=== PATIENT | male | born 2000 | race Caucasian/White ===

== ENCOUNTER 2019-06-13 16:02 | Emergency (ER) | payer BC ==
--- NOTE | 2019-06-13 16:39 | ER Document Report ---
ED Medical Screen (RME) - General Chief Complaint: Testicular Pain Stated Complaint: TESTICULAR PAIN Time Seen by Provider: 06/13/19 16:36 Mode of Arrival: Ambulatory Information source: Patient Notes: Patient presents complaining of right testicular pain for the past 3 days. Patient denies any fever nausea vomiting or urinary symptoms. Patient denies any change in appearance of the scrotum. Patient denies any trauma to the scrotum. I have greeted and performed a rapid initial assessment of this patient. A comprehensive ED assessment and evaluation of the patient, analysis of test r esults and completion of the medical decision making process will be conducted by additional ED providers. - Related Data Allergies/Adverse Reactions: No Known Allergies Allergy (Unverified 06/13/19 16:05) Past Medical History - Social History Chew tobacco use (# tins/day): No Frequency of alcohol use: None Drug Abuse: None Renal/ Medical History: Denies: Hx Peritoneal Dialysis Physical Exam - Vital signs Vitals: Temp Pulse Resp BP Pulse Ox 97.5 F 71 16 134/68 H 99 06/13/19 16:08 06/13/19 16:08 06/13/19 16:08 06/13/19 16:08 06/13/19 16:08 - General General appearance: Appears well, Alert In distress: None Course - Vital Signs Vital signs: Temp Pulse Resp BP Pulse Ox 97.5 F 71 16 134/68 H 99 06/13/19 16:08 06/13/19 16:08 06/13/19 16:08 06/13/19 16:08 06/13/19 16:08
[2019-06-13 17:50] LABS: ABSOLUTE EOSINOPHILS # (AUTO) 0.1 10^3/uL (0.0-0.6); ABSOLUTE LYMPHOCYTES (AUTO) 1.6 10^3/uL (0.5-4.7); ABSOLUTE MONOCYTES (AUTO) 0.4 10^3/uL (0.1-1.4); ABSOLUTE NEUT (AUTO) 2.9 10^3/uL (1.7-8.2); BASOPHILS % (AUTO) 0.7 % (0-2); EOSINOPHILS % (AUTO) 2.3 % (0-6); HEMOGLOBIN 15.1 g/dL (13.5-17.0); LYMPHOCYTES % (AUTO) 31.4 % (13-45); MEAN CORPUSCULAR HEMOGLOBIN 29.4 pg (27.0-33.4); MEAN CORPUSCULAR VOLUME 84 fl (80-97); MONOCYTES % (AUTO) 7.3 % (3-13); PLATELET COUNT 248 10^3/uL (150-450); RED BLOOD COUNT 5.13 10^6/uL (4.35-5.55); RED CELL DISTRIBUTION WIDTH 12.8 % (11.5-14.0); SEGMENTED NEUTROPHILS % (AUTO) 58.3 % (42-78); TOTAL CELLS COUNTED % (AUTO) 100 %
[2019-06-13 17:51] LABS: APPEARANCE,URINE CLEAR; BILIRUBIN,URINE NEGATIVE (NEGATIVE); COLOR,URINE YELLOW; GLUCOSE, URINE NEGATIVE (NEGATIVE); KETONES,URINE NEGATIVE (NEGATIVE); LEUKOCYTE ESTERASE,URINE NEGATIVE (NEGATIVE); NITRITE,URINE NEGATIVE (NEGATIVE); PROTEIN,URINE NEGATIVE (NEGATIVE); URINE SPECIFIC GRAVITY 1.011
[2019-06-13 18:09] LABS: ANION GAP 9 (5-19); BLOOD UREA NITROGEN 13 mg/dL (7-20); CALCIUM 10.1 mg/dL (8.4-10.2); CARBON DIOXIDE 30 mmol/L (22-30); CHLORIDE 101 mmol/L (98-107); GLUCOSE 91 mg/dL (75-110); POTASSIUM 4.4 mmol/L (3.6-5.0)
--- NOTE | 2019-06-13 18:12 | RADIOLOGY REPORT (SQ) ---
EXAM DESCRIPTION: U/S SCROTUM W/DOPPLER COMPLETED DATE/TIME: 06/13/2019 6:02 pm REASON FOR STUDY: right scrotal pain COMPARISON: None. TECHNIQUE: Static and realtime calderon scale imaging of the scrotum and testes. Selected color Doppler and spectral images recorded to document blood flow. LIMITATIONS: None. FINDINGS: RIGHT: TESTICLE: Normal size. Normal echotexture. Normal blood flow. No mass. EPIDIDYMIS: Normal. HYDROCELE OR VARICOCELE: No. HERNIA OR EXTRA-TESTICULAR MASS: No. OTHER: No other significant finding. LEFT: TESTICLE: Normal size. Normal echotexture. Normal blood flow. No mass. EPIDIDYMIS: Normal. HYDROCELE OR VARICOCELE: No. HERNIA OR EXTRA-TESTICULAR MASS: No. OTHER: No other significant finding. IMPRESSION: NO EVIDENCE OF TESTICULAR MASS OR TORSION. TECHNICAL DOCUMENTATION: JOB ID: [id number] [id number] 2010 [employer]- All Rights Reserved Reading location - IP/workstation name: [email or web address]
[2019-06-13 19:20] LABS: CHLAM PCR NOT DETECTED (NOT DETECT)
--- NOTE | 2019-06-13 23:45 | ER Document Report ---
ED General - General Chief Complaint: Testicular Pain Stated Complaint: TESTICULAR PAIN Time Seen by Provider: 06/13/19 16:36 Primary Care Provider: [facility] WALDEN [Provider Group] - Follow up as needed [facility] OROZCO [Provider Group] - Follow up as needed Mode of Arrival: Ambulatory Information source: Patient Notes: This 18-year-old male presents emergency department with complaints of right- sided testicular pain since Sunday. He reports he just woke up with the pain. Denies trauma. Went to work on Sunday and he was hurting so bad he decided to go home on the way walking out the door he did pass out. He came to right away. Denies pain with void, denies testicular pain. 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 Denies penile discharge. Reports he is sexually active with one person and uses condoms. Denies past medical history of injury to his testicle. Denies fever vomiting diarrhea. Patient did see the urgent care before he came here they advised him for an ultrasound. When they went to a separate radiology clinic they were advised that the ultrasound would cost $1200 upfront so they cannot pay that so they came here. patient is planning on going into the [employer] in 10 days. - HPI Onset: Other Onset/Duration: Persistent Quality of pain: Achy Severity: Mild Pain Level: 2 Associated symptoms: None Exacerbated by: Denies Relieved by: Denies Similar symptoms previously: Yes Recently seen / treated by doctor: Yes - Related Data Allergies/Adverse Reactions: No Known Allergies Allergy (Unverified 06/13/19 16:05) Past Medical History - General Information source: Patient - Social History Smoking Status: Never Smoker Chew tobacco use (# tins/day): No Frequency of alcohol use: None Drug Abuse: None Occupation: Restaurant Lives with: Family Family History: None Patient has suicidal ideation: No Patient has homicidal ideation: No - Medical History Medical History: Negative Renal/ Medical History: Denies: Hx Peritoneal Dialysis Surgical Hx: Negative Review of Systems - Review of Systems Notes: Review HPI for review of systems., All other systems negative Physical Exam - Vital signs Vitals: Temp Pulse Resp BP Pulse Ox 97.5 F 71 16 134/68 H 99 06/13/19 16:08 06/13/19 16:08 06/13/19 16:08 06/13/19 16:08 06/13/19 16:08 - General General appearance: Appears well, Alert, Anxious In distress: None - HEENT Head: Normocephalic, Atraumatic Eyes: Normal Conjunctiva: Normal Neck: Normal, Supple. No: Lymphadenopathy - Respiratory Respiratory status: No respiratory distress Chest status: Nontender Breath sounds: Normal Chest palpation: Normal - Cardiovascular Rhythm: Regular Heart sounds: Normal auscultation Murmur: No - Abdominal Inspection: Normal Distension: No distension Bowel sounds: Normal Tenderness: Nontender Organomegaly: No organomegaly - Genitourinary Tenderness: Nontender Scrotum: Normal. No: Swelling, Redness, Hot to touch - Back Back: Normal, Nontender - Extremities General upper extremity: Normal ROM General lower extremity: Normal ROM, Normal weight bearing - Neurological Neuro grossly intact: Yes Cognition: Normal Orientation: AAOx4 [place] Coma Scale Eye Opening: Spontaneous [place] Coma Scale Verbal: Oriented [place] Coma Scale Motor: Obeys Commands [place] Coma Scale Total: 15 Speech: Normal Sensory: Normal - Psychological Associated symptoms: Normal affect, Normal mood - Skin Skin Temperature: Warm Skin Moisture: Dry Skin Color: Normal Course - Re-evaluation Re-evalutation: 06/13/19 23:45 18-year-old male presents emergency department with complaints of right testicular pain since Sunday. Denies penile discharge. Denies pain with void. Denies trauma. Reports it feels like somebody kicked him in the testicles. Reports he is gotten used to it since it started on Sunday. Patient reports he is going in the [employer] in 10 days. Scrotum Ultrasound 06/13/19 16:38 IMPRESSION: NO EVIDENCE OF TESTICULAR MASS OR TORSION. 06/13/19 23:45 the patient was instructed on negative testicular exam labs unremarkable. He was instructed to follow-up with urologist for symptoms. He verbalized un derstanding to all results. Dictation of this chart was performed using voice recognition software; therefore, there may be some unintended grammatical errors. 06/13/19 17:20 06/13/19 17:20 MCV 84 fl (80-97) 06/13/19 17:20 MCH 29.4 pg (27.0-33.4) 06/13/19 17:20 MCHC 35.0 g/dL (32.0-36.0) 06/13/19 17:20 RDW 12.8 % (11.5-14.0) 06/13/19 17:20 Seg Neutrophils % 58.3 % (42-78) 06/13/19 17:20 Lymphocytes % 31.4 % (13-45) 06/13/19 17:20 Monocytes % 7.3 % (3-13) 06/13/19 17:20 Eosinophils % 2.3 % (0-6) 06/13/19 17:20 Basophils % 0.7 % (0-2) 06/13/19 17:20 Absolute Neutrophils 2.9 10^3/uL (1.7-8.2) 06/13/19 17:20 Absolute Lymphocytes 1.6 10^3/uL (0.5-4.7) 06/13/19 17:20 Absolute Monocytes 0.4 10^3/uL (0.1-1.4) 06/13/19 17:20 Absolute Eosinophils 0.1 10^3/uL (0.0-0.6) 06/13/19 17:20 Absolute Basophils 0.0 10^3/uL (0.0-0.2) 06/13/19 17:20 Chloride 101 mmol/L (98-107) 06/13/19 17:20 Carbon Dioxide 30 mmol/L (22-30) 06/13/19 17:20 Anion Gap 9 (5-19) 06/13/19 17:20 Est GFR ( Amer) > 60 (>60) 06/13/19 17:20 Est GFR (Non-Af Amer) > 60 (>60) 06/13/19 17:20 Glucose 91 mg/dL (75-110) 06/13/19 17:20 Calcium 10.1 mg/dL (8.4-10.2) 06/13/19 17:20 Urine Color YELLOW 06/13/19 17:20 Urine Appearance CLEAR 06/13/19 17:20 Urine pH 7.0 (5.0-9.0) 06/13/19 17:20 Ur Specific Willis 1.011 06/13/19 17:20 Urine Protein NEGATIVE mg/dL (NEGATIVE) 06/13/19 17:20 Urine Glucose (UA) NEGATIVE mg/dL (NEGATIVE) 06/13/19 17:20 Urine Ketones NEGATIVE mg/dL (NEGATIVE) 06/13/19 17:20 Urine Blood NEGATIVE (NEGATIVE) 06/13/19 17:20 Urine Nitrite NEGATIVE (NEGATIVE) 06/13/19 17:20 Ur Leukocyte Esterase NEGATIVE (NEGATIVE) 06/13/19 17:20 Urine WBC (Auto) 1 /HPF 06/13/19 17:20 Urine RBC (Auto) 0 /HPF 06/13/19 17:20 06/14/19 07:47 - Vital Signs Vital signs: Temp Pulse Resp BP Pulse Ox 98.3 F 70 16 134/67 H 100 06/14/19 00:09 06/14/19 00:09 06/14/19 00:09 06/14/19 00:09 06/14/19 00:09 - Laboratory Result Diagrams: 06/13/19 17:20 06/13/19 17:20 Laboratory results interpreted by me: 06/13/19 17:20 Urine Urobilinogen 2.0 H - Diagnostic Test Radiology reviewed: Image reviewed, Reports reviewed Discharge - Discharge Clinical Impression: Testicular pain, right Condition: Stable Disposition: HOME, SELF-CARE Instructions: Use of [id number] Ibuprofen ([facility]), Testicular Pain ([facility]) Additional Instructions: *You have been evaluated for testicular pain *Your STD cultures were negative the ultrasound did not show an acute injury *Take motrin as indicated, avoid heavy lifting *Follow up with a primary care provider within one week for urology referral as indicated *Return to ED for worsening condition, changes, needs *Return to ED if not better in 24 hours Monitor your blood pressure. Your blood pressure was elevated today. This may be because you were anxious, in pain or because you need medication. It is important to follow up with your primary care provider for full evaluation. Forms: Elevated Blood Pressure, Return to Work Referrals: [facility] [Provider Group] - Follow up as needed [facility] [Provider Group] - Follow up as needed
[2019-06-14 00:10] VITALS: BP 134/67
== END 2019-06-14 00:10 | disposition home or self-care (01) ==
LOC: ER 16:02
DX: N50.811 Right testicular pain (principal)
CPT/HCPCS: 36415; 76870; 80048; 81001; 85025; 87491; 87591; 93976; 99284